=== PATIENT | female | born 1995 | race Caucasian/White ===

== ENCOUNTER 2017-04-17 19:45 | Emergency (ER) | payer OTHER ==
[2017-04-17] MEDS ORDERED: MORPHINE SULFATE 4 MG INJ IV ONE (20:22)
[2017-04-17] MEDS ORDERED: Sodium Chloride 0.9% 1000 ML 1,000 ML IV STA (20:22)
[2017-04-17] MEDS ORDERED: Zofran 4 MG/2 ML VIAL IV ONE (20:22)
[2017-04-17] MEDS ORDERED: MORPHINE SULFATE 4 MG INJ ONE (20:26)
[2017-04-17] MEDS ORDERED: Zofran 4 MG/2 ML VIAL ONE (20:26)
--- NOTE | 2017-04-17 20:26 | ERPHSYRPT ---
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 Denies N/V/D. Rates pain 12/12. Describes as stabbing and constant. LMP last week. Triage Nursing Assessment: Pt alert, oriented, answers all questions appropriately. Skin pink, warm, dry. Resps non-labored. Pt ambulatory without difficulty, steady gait noted. Pt with mild tenderness upon palpation. Bowel sounds present. Physician History: 21-year-old white female arrives with complaint of upper quadrant pain which began in the right upper quadrant went to the epigastric region symptoms since 6 :00 no vomiting no diarrhea she states she has had frequent episodes of urination. Past medical history includes hypoglycemia. Past surgical history includes bladder surgery as a child. Social history patient denies tobacco alcohol or illicit drug use Timing/Duration: today (6:00 this evening) Activities at Onset: none Quality: cramping Abdominal Pain Onset Location: RUQ, epigastric Pain Radiation: no radiation Severity of Pain-Max: moderate Severity of Pain-Current: moderate Modifying Factors: Improves With: nothing Associated Symptoms: No back, No chest pain, No diaphoresis, No diarrhea, No fever/chills, No fatigue, No headache, No heartburn, No loss of appetite, No nausea, No neck pain, No rash, No shortness of breath, No syncope Previous symptoms: no prior history Allergies/Adverse Reactions: No Known Drug Allergies Allergy (Unverified 11/10/11 13:35) Home Medications: Medroxyprogesterone Acetate [Depo-Provera] 150 mg IM UD 07/13/12 [History] Hx Influenza Vaccination/Date Given: Yes (04/2012) Hx Pneumococcal Vaccination/Date Given: No Immunizations Up to Date: Yes - Review of Systems Constitutional: No Fever, No Chills Eyes: No Symptoms Ears, Nose, & Throat: No Symptoms Respiratory: No Cough, No Dyspnea Cardiac: No Chest Pain, No Edema, No Syncope Abdominal/Gastrointestinal: Abdominal Pain, No Nausea, No Vomiting, No Diarrhea , No Constipation, No Hematemesis, No Hematochezia, No Melena, No Dysphagia Genitourinary Symptoms: No Dysuria Musculoskeletal: No Back Pain, No Neck Pain Skin: No Rash Neurological: No Dizziness, No Focal Weakness, No Sensory Changes Psychological: No Symptoms Endocrine: No Symptoms All Other Systems: Reviewed and Negative - Past Medical History Pertinent Past Medical History: No Neurological History: No Pertinent History ENT History: No Pertinent History Cardiac History: No Pertinent History Respiratory History: No Pertinent History Endocrine Medical History: No Pertinent History Musculoskeletal History: Other GI Medical History: No Pertinent History History: Other Psycho-Social History: No Pertinent History Female Reproductive Disorders: No Pertinent History Other Medical History: reorientation bilateral ureters at age 13 at [place]. ureters were at thetop of kidneys at . bilateral knee pain - Past Surgical History Past Surgical History: Yes Neuro Surgical History: No Pertinent History Cardiac: No Pertinent History Respiratory: No Pertinent History Gastrointestinal: No Pertinent History Genitourinary: Kidney Surgery Musculoskeletal: Other Female Surgical History: No Pertinent History Other Surgical History: bilateral ear tubes at age 5 - Social History Smoking Status: Never smoker Exposure to second hand smoke: No Drug Use: none Patient Lives Alone: No - Female History Hx Last Menstrual Period: 04/15/17 Hx Now: No - Nursing Vital Signs Nursing Vital Signs: Initial Vital Signs Temperature 97.8 F 04/17/17 20:04 Pulse Rate 98 H 04/17/17 20:04 Respiratory Rate 16 04/17/17 20:04 Blood Pressure 128/68 04/17/17 20:04 O2 Sat by Pulse Oximetry 100 04/17/17 20:04 Pain Scale Pain Intensity 6 - Physical Exam General Appearance: no apparent distress, alert Eye Exam: PERRL/EOMI, eyes nml inspection Ears, Nose, Throat Exam: normal ENT inspection, pharynx normal, moist mucous membranes Neck Exam: normal inspection, non-tender, supple, full range of motion Respiratory Exam: normal breath sounds, lungs clear, No respiratory distress Cardiovascular Exam: regular rate/rhythm, normal heart sounds Gastrointestinal/Abdomen Exam: soft, normal bowel sounds, tenderness (right upper quadrant right mid quadrant tenderness), No distention, No mass, No guarding, No pulsatile mass Back Exam: normal inspection, normal range of motion, No CVA tenderness, No vertebral tenderness Extremity Exam: normal inspection, normal range of motion, pelvis stable Neurologic Exam: alert, oriented x 3, cooperative, normal mood/affect, nml cerebellar function, sensation nml, No motor deficits Skin Exam: normal color, warm, dry SpO2 Interpretation: normal (100%) SpO2: 100 Oxygen Delivery: Room Air - Course Nursing assessment & vital signs reviewed: Yes Ordered Tests: Active Orders 24 hr Category Date Time Status IV Insertion STAT Care 04/17/17 20:22 Active AMYLASE Stat Lab 04/17/17 20:25 Completed CBC W DIFF Stat Lab 04/17/17 20:25 Completed CMP Stat Lab 04/17/17 20:25 Completed CULTURE,URINE Stat Lab 04/17/17 20:25 Received HCG QUALITATIVE,SERUM Stat Lab 04/17/17 20:25 Completed LIPASE Stat Lab 04/17/17 20:25 Completed UA W/ MICROSCOPIC Stat Lab 04/17/17 20:25 Completed Medication Summary Generic Name Dose Route Start Last Admin Trade Name Freq PRN Reason Stop Dose Admin Sodium Chloride 1,000 mls @ 999 mls/hr 04/17/17 20:22 04/17/17 20:31 Sodium Chloride 0.9% 1000 Ml IV 04/17/17 21:22 999 mls/hr .Q1H1M STA Administration Discontinued Medications Generic Name Dose Route Start Last Admin Trade Name Freq PRN Reason Stop Dose Admin Sodium Chloride Confirm 04/17/17 20:27 Sodium Chloride 0.9% 1000 Ml Administered 04/17/17 20:28 Dose 1,000 mls @ ud .ROUTE .STK-MED ONE Morphine Sulfate 4 mg 04/17/17 20:22 04/17/17 20:32 Morphine Sulfate 4 Mg Inj IV 04/17/17 20:23 Not Given STAT ONE Morphine Sulfate Confirm 04/17/17 20:26 Morphine Sulfate 4 Mg Inj Administered 04/17/17 20:27 Dose 4 mg .ROUTE .STK-MED ONE Ondansetron HCl 4 mg 04/17/17 20:22 04/17/17 20:31 Zofran 4 Mg/2 Ml Vial IV 04/17/17 20:23 4 mg STAT ONE Administration Ondansetron HCl Confirm 04/17/17 20:26 Zofran 4 Mg/2 Ml Vial Administered 04/17/17 20:27 Dose 4 mg .ROUTE .STK-MED ONE Lab/Rad Data: Laboratory Result Diagrams 04/17/17 20:25 04/17/17 20:25 Laboratory Results 04/17/17 04/17/17 04/17/17 Range/Units 20:25 20:25 20:25 WBC 5.2 (4.0-10.5) K/mm3 RBC 4.60 (4.1-5.4) M/mm3 Hgb 13.2 (12.0-16.0) gm/dl Hct 39.1 (35-47) % MCV 85.0 (78-100) fl MCH 28.7 (26-32) pg MCHC 33.8 (32-36) g/dl RDW 12.5 (11.5-14.0) % Plt Count 228 (150-450) K/mm3 MPV 10.8 H (6-9.5) fl Gran % 45.6 (36.0-66.0) % Lymphocytes % 38.2 (24.0-44.0) % Monocytes % 14.1 H (0.0-12.0) % Eosinophils % 1.7 (0.00-5.0) % Basophils % 0.4 (0.0-0.4) % Basophils # 0.02 (0-0.4) Sodium 143 (136-145) mEq/L Potassium 3.9 (3.5-5.1) mEq/L Chloride 107 (98-107) mEq/L Carbon Dioxide 27.3 (21-32) mEq/L Anion Gap 12.1 (5-15) MEQ/L BUN 15 (9-20) mg/dL Creatinine 0.82 (0.55-1.30) mg/dl Estimated GFR > 60 ML/MIN Glucose 93 (70-110) MG/DL Calcium 8.7 (8.5-10.1) mg/dL Total Bilirubin 0.40 (0.2-1.0) mg/dL AST 21 (15-37) U/L ALT 26 (12-78) U/L Alkaline Phosphatase 109 (46-116) U/L Serum Total Protein 7.3 (6.4-8.2) gm/dL Albumin 3.9 (3.4-5.0) g/dL Amylase 60 (25-115) U/L Lipase 105 (73-393) U/L Serum , Qual NEGATIVE (Negative) Ur Collection Type Urine Color (YELLOW) Urine Appearance (CLEAR) Urine pH (5-6) Ur Specific [place] (1.005-1.025) Urine Protein (Negative) Urine Ketones (NEGATIVE) Urine Blood (0-5) Jose R/ul Urine Nitrite (NEGATIVE) Urine Bilirubin (NEGATIVE) Urine Urobilinogen (0-1) mg/dL Ur Leukocyte Esterase (NEGATIVE) Urine Microscopic WBC (0-5) /HPF Urine Bacteria (NEGATIVE) /HPF Urine Culture Reflexed (NO) Urine Glucose (NEGATIVE) mg/dL Specimen Received 04/17/17 Range/Units 20:25 WBC (4.0-10.5) K/mm3 RBC (4.1-5.4) M/mm3 Hgb (12.0-16.0) gm/dl Hct (35-47) % MCV (78-100) fl MCH (26-32) pg MCHC (32-36) g/dl RDW (11.5-14.0) % Plt Count (150-450) K/mm3 MPV (6-9.5) fl Gran % (36.0-66.0) % Lymphocytes % (24.0-44.0) % Monocytes % (0.0-12.0) % Eosinophils % (0.00-5.0) % Basophils % (0.0-0.4) % Basophils # (0-0.4) Sodium (136-145) mEq/L Potassium (3.5-5.1) mEq/L Chloride (98-107) mEq/L Carbon Dioxide (21-32) mEq/L Anion Gap (5-15) MEQ/L BUN (9-20) mg/dL Creatinine (0.55-1.30) mg/dl Estimated GFR ML/MIN Glucose (70-110) MG/DL Calcium (8.5-10.1) mg/dL Total Bilirubin (0.2-1.0) mg/dL AST (15-37) U/L ALT (12-78) U/L Alkaline Phosphatase (46-116) U/L Serum Total Protein (6.4-8.2) gm/dL Albumin (3.4-5.0) g/dL Amylase (25-115) U/L Lipase (73-393) U/L Serum , Qual (Negative) Ur Collection Type CLEAN CATCH Urine Color YELLOW (YELLOW) Urine Appearance CLEAR (CLEAR) Urine pH 7.0 (5-6) Ur Specific [place] 1.010 (1.005-1.025) Urine Protein NEGATIVE (Negative) Urine Ketones NEGATIVE (NEGATIVE) Urine Blood TRACE NON-HEM (0-5) Jose R/ul Urine Nitrite POSITIVE (NEGATIVE) Urine Bilirubin NEGATIVE (NEGATIVE) Urine Urobilinogen NORMAL (0-1) mg/dL Ur Leukocyte Esterase TRACE (NEGATIVE) Urine Microscopic WBC 0-2 (0-5) /HPF Urine Bacteria MANY (NEGATIVE) /HPF Urine Culture Reflexed YES (NO) Urine Glucose NEGATIVE (NEGATIVE) mg/dL Specimen Received [id number] - Progress Progress: improved Progress Note: 04/17/17 21:21 21-year-old white female arrives with complaint of one hour of upper abdominal pain epigastric region crampy in nature Patient with nausea. Patient with mild tenderness in the right middle upper quadrant of the abdomen. Patient with normal CBC CMP amylase lipase and urine Patient was offered morphine Zofran Patient refused pain medications did take Zofran. Patient states she still has pain but really doesn't want any pain meds. Will go ahead and release patient she is to follow-up with her family doctor Tylenol as needed for pain. - Departure Time of Disposition: 21:24 Departure Disposition: Home Clinical Impression: Abdominal pain Qualifiers: Abdominal location: upper abdomen, unspecified Qualified Code(s): R10.10 - Upper abdominal pain, unspecified Condition: Fair Critical Care Time: No Referrals: MAXIMILIANO GAMBOA [Primary Care Provider] - Instructions: Abdominal Pain-Adult Additional Instructions: Return home. Plenty of fluids clear fluids only 24-48 hours if abdominal pain. Tylenol every 4 hours as needed for pain. Follow-up with your family symptoms no better tomorrow become worse or persist longer than 48 hours. Return for acute distress or for severe symptoms.
[2017-04-17] MEDS ORDERED: Sodium Chloride 0.9% 1000 ML 1,000 ML ONE (20:27)
[2017-04-17 20:29] LABS: BASOPHIL % 0.4 % (0.0-0.4); Eosinophil % 1.7 % (0.00-5.0); Granulocytes % 45.6 % (36.0-66.0); Lymphocytes % 38.2 % (24.0-44.0); Mean Corpuscular Hemoglobin 28.7 pg (26-32); Mean Platelet Volume 10.8 fl (6-9.5); Monocytes % 14.1 % (0.0-12.0); Platelet Count 228 K/mm3 (150-450); Red Cell Distribution Width 12.5 % (11.5-14.0); White Blood Count 5.2 K/mm3 (4.0-10.5)
[2017-04-17 20:54] LABS: ALBUMIN 3.9 g/dL (3.4-5.0); ALKALINE PHOSPHATASE 109 U/L (46-116); ANION GAP 12.1 MEQ/L (5-15); BLOOD UREA NITROGEN 15 mg/dL (9-20); CHLORIDE 107 mEq/L (98-107); Carbon Dioxide 27.3 mEq/L (21-32); Glucose 93 MG/DL (70-110); LIPASE 105 U/L (73-393); Potassium 3.9 mEq/L (3.5-5.1); SGOT/AST 21 U/L (15-37); SGPT/ALT 26 U/L (12-78); SODIUM 143 mEq/L (136-145); Total Protein 7.3 gm/dL (6.4-8.2)
[2017-04-17 21:04] LABS: Bilirubin NEGATIVE (NEGATIVE); Blood TRACE NON-HEM Ery/ul (0-5); COMPLETE URINE MICROSCOPIC? YES; Collection Type CLEAN CATCH; Glucose NEGATIVE (NEGATIVE); Leukocyte Esterase TRACE (NEGATIVE)
[2017-04-17 21:05] LABS: ADD URINE CULTURE? YES (NO); Bacteria MANY /HPF (NEGATIVE); WBC 0-2 /HPF (0-5)
[2017-04-17 21:36] VITALS: BP 111/66; PULSE 100; O2SAT 99
== END 2017-04-17 22:08 | disposition home or self-care (01) ==
LOC: ED 19:45
DX: R10.10 Upper abdominal pain, unspecified (principal)
CPT/HCPCS: 36000; 36415; 80053; 81000; 82150; 83690; 84703; 85025; 87077; 87086; 87186; 96360; 96374; 99284; J2270; J2405